=== PATIENT | male | born 1985 | race Caucasian/White ===

== ENCOUNTER → 2022-05-21 12:12 | Outpatient (BNVA) | payer SELFPAY | PROVIDERS: Visit Provider Nurse Practitioner Family | DX: F10.20 Alcohol dependence, uncomplicated (principal); R14.0 Abdominal distension (gaseous); R17 Unspecified jaundice | CPT/HCPCS: 80053; 85025 ==

== ENCOUNTER → 2022-05-30 09:51 | Outpatient (BNVA) | payer SELFPAY | PROVIDERS: Visit Provider Nurse Practitioner Family | DX: D64.9 Anemia, unspecified (principal); F10.20 Alcohol dependence, uncomplicated; K74.60 Unspecified cirrhosis of liver; R17 Unspecified jaundice | CPT/HCPCS: 80053; 85025 ==

== ENCOUNTER → 2022-06-05 09:47 | Outpatient (BNVA) | payer SELFPAY | PROVIDERS: Visit Provider Nurse Practitioner Family | DX: R73.09 Other abnormal glucose (principal) | CPT/HCPCS: 83036 ==

== ENCOUNTER → 2022-08-23 13:32 | Outpatient (BNVA) | payer MEDICAID, SELFPAY | PROVIDERS: Visit Provider Nurse Practitioner Family | DX: D64.9 Anemia, unspecified (principal); F10.20 Alcohol dependence, uncomplicated; R74.8 Abnormal levels of other serum enzymes; Z23 Encounter for immunization | CPT/HCPCS: 80053; 85025 ==

== ENCOUNTER → 2022-12-28 15:08 | Outpatient (BNVA) | payer MEDICAID, SELFPAY | PROVIDERS: PCP Nurse Practitioner Family; Visit Provider Nurse Practitioner Family | DX: R74.8 Abnormal levels of other serum enzymes (principal); D64.9 Anemia, unspecified; F90.9 Attention-deficit hyperactivity disorder, unspecified type; F10.20 Alcohol dependence, uncomplicated; F41.9 Anxiety disorder, unspecified; Z68.25 Body mass index [BMI] 25.0-25.9, adult | CPT/HCPCS: 80053; 85025 ==

== ENCOUNTER → 2023-01-30 09:49 | Outpatient (BNVA) | payer MEDICAID, SELFPAY | PROVIDERS: PCP Nurse Practitioner Family; Visit Provider Nurse Practitioner Family | DX: D64.9 Anemia, unspecified (principal); E83.119 Hemochromatosis, unspecified; K74.60 Unspecified cirrhosis of liver; R74.8 Abnormal levels of other serum enzymes | CPT/HCPCS: 80053; 85025 ==